=== PATIENT | female | born 1950 | race Caucasian/White ===

== ENCOUNTER → 2023-09-22 16:45 | Outpatient (REF) | payer OTHER, SELFPAY | LOC: RAD 16:45 | PROVIDERS: ATTENDING PHYSICIAN Family Medicine | DX: M25.552 Pain in left hip (principal); M25.551 Pain in right hip; M54.50 Low back pain, unspecified; G89.29 Other chronic pain | CPT/HCPCS: 72110; 73523 ==

== ENCOUNTER → 2023-10-06 15:20 | Outpatient (REF) | payer OTHER, SELFPAY | LOC: HWRAD 15:20 | PROVIDERS: ATTENDING PHYSICIAN Family Medicine | DX: Z12.31 Encounter for screening mammogram for malignant neoplasm of breast (principal); M81.0 Age-related osteoporosis without current pathological fracture | CPT/HCPCS: 77063; 77067; 77080 ==